=== PATIENT | male | born 1950 | race Caucasian/White ===

== ENCOUNTER 2016-12-09 21:35 | Emergency (ER) | payer OTHER ==
[~2016-12-09] VITALS: Ht 165.1 cm; Wt 88.5 kg
[~2016-12-09 21:35] MED LIST: ACTOS15 MG PO; ADULT LOW DOSE81 MG PO; ALLOPURINOL100 MG PO; AMLODIPINE BESY10 MG PO; ATENOLOL50 MG PO; ATORVASTATIN CA40 MG PO; FUROSEMIDE40 MG PO; GLUCOSAMINE1000 MG PO; HUMULIN N300 UNIT/3 SC; LASIX40 MG PO; LEVOFLOXACIN500 MG PO; LIPITOR40 MG PO; LIPITOR5 MG PO; LOSARTAN POTAS100 MG PO; Lasix PO; Lipitor PO; NORVASC5 MG PO; NOVOLIN N100 UNIT/1 SC; NOVOLOG PE100 UNITS/ SC; NPH HumuLIN SC; Norvasc PO; OXYCODONE HCL5 M1 PO; PANTOPRAZOLE SO40 MG PO; PLAVIX75 MG PO; PRINIVIL40 MG PO; PROTONIX40 MG PO; Protonix PO; ROCALTROL0.25 MCG PO; Rocaltrol PO; SERTRALINE HCL50 MG PO; TENORMIN50 MG PO; Tenormin PO; VITAMIN D-32000 UNIT PO; VITAMIN D31000 UNIT PO; Vitamin D PO; ZOLOFT50 MG PO; ZYLOPRIM100 MG PO; Zestril,Prinivil PO; Zoloft PO; Zyloprim PO
[2016-12-10 00:35] VITALS: BP 156/85
== END 2016-12-10 00:49 | disposition home or self-care (01) ==
LOC: EME 21:35 → RME 21:35
PROC: 2W3CX1Z Immobilization of Right Lower Arm using Splint (ICD-10-PCS; principal; 2016-12-09)
DX: S62.614A Displaced fracture of proximal phalanx of right ring finger, initial encounter for closed fracture (principal); S62.616A Displaced fracture of proximal phalanx of right little finger, initial encounter for closed fracture; W18.30XA Fall on same level, unspecified, initial encounter; I10 Essential (primary) hypertension; E11.9 Type 2 diabetes mellitus without complications; Z79.4 Long term (current) use of insulin; Z79.02 Long term (current) use of antithrombotics/antiplatelets; Z95.1 Presence of aortocoronary bypass graft
CPT/HCPCS: 73130; 99281; 99283

== ENCOUNTER 2017-11-30 02:40 | Inpatient (IN) | payer OTHER ==
[2017-11-30] VITALS (19 sets, daily range): BP systolic 85–107; BP diastolic 40–52
[~2017-11-30] VITALS: Ht 154.9 cm; Wt 101.8 kg
[~2017-11-30 02:40] MED LIST changes: +HUMULIN N100 UNIT/2 SC
[2017-11-30 03:25] LABS: CHLORIDE 113 mEq/L (99-109); POTASSIUM 5.8 mEq/L (3.7-5.4); SODIUM 146 mEq/L (136-147)
[2017-11-30 03:28] LABS: INTER. NORMALIZED RATIO 1.3
[2017-11-30 03:29] LABS: TOTAL BILIRUBIN 0.6 mg/dL (0.0-1.0)
[2017-11-30 03:31] LABS: PTT 43.6 SEC (25-37)
[2017-11-30 03:33] LABS: AST (GOT) 43 IU/L (2-34)
[2017-11-30 03:39] LABS: TROP-I INTERPRETATION NEGATIVE; TROPONIN-I 0.02 ng/mL (0.0-0.30)
[2017-11-30 03:46] LABS: ALBUMIN 3.8 g/dL (3.2-4.8)
[2017-11-30 03:49] LABS: GLUCOSE 110 mg/dL (70-99); TOTAL PROTEIN 6.5 g/dL (6.4-8.3)
[2017-11-30 03:52] LABS: ALKALINE PHOSPHATASE 215 IU/L (3-129)
[2017-11-30 03:53] LABS: CREATININE 5.6 mg/dL (0.6-1.3); GFR ESTIMATE (CALCULATED) 11 mL/min/ (58.99-99999)
[2017-11-30 03:54] LABS: DIRECT BILIRUBIN 0.3 mg/dL (0.0-0.3); UREA NITROGEN (BUN) 98 mg/dL (9-23)
[2017-11-30 03:56] LABS: ALT (GPT) 45 IU/L (3-49)
[2017-11-30 04:33] LABS: BASOPHIL (%) 0.2 % (0-1); EOSINOPHIL COUNT 0.1 K/uL (0-0.3); HEMATOCRIT 31.5 % (38.0-50.0); HEMOGLOBIN 10.3 G/DL (12.5-16.6); IMMATURE GRANULOCYTE (%) 0.2 % (0.0-0.7); LYMPHOCYTE (%) 22.1 % (15-42); MCH 28.9 PG (29.0-34.0); MCHC 32.7 G/DL (30.0-36.0); MCV 88.5 FL (86-99); MONOCYTE (%) 6.4 % (3-12); MONOCYTE COUNT 0.3 K/uL (0-0.8); NEUTROPHIL (%) 69.1 % (45-76); NEUTROPHIL COUNT 3.2 K/uL (1.8-6.4); PLATELET COUNT 78 K/uL (156-360); RBC DIS.WIDTH-CV 17.5 % (11.8-14.6); RBC DIS.WIDTH-SD 56.7 % (39-53); RED BLOOD COUNT 3.56 M/uL (4.00-5.50); WHITE BLOOD COUNT 4.6 K/uL (4.1-10.2)
[2017-11-30 06:56] LABS: APPEARANCE CLOUDY ((CLEAR)); BILIRUBIN NEGATIVE; BLOOD NEGATIVE; COLOR YELLOW ((YELLOW)); GLUCOSE (STRIP) NEGATIVE; KETONES NEGATIVE; LEUKOCYTES MODERATE; NITRITE NEGATIVE; PROTEIN (STRIP) 30; SPECIFIC GRAVITY 1.014 (1.000-1.030); UROBILINOGEN 0.2 MG/DL (0.2-1.0)
[2017-11-30 08:01] LABS: BACTERIA 2+ /HPF; EPITHELIAL CELLS 1+ /HPF; MUCUS NONE SEEN /LPF; RED BLOOD CELLS 0-5 /HPF (0-5); UCUL ADDED? YES
[2017-11-30 08:02] LABS: AMORPHOUS PHOSPHATE CRYSTALS 2+
[2017-11-30 08:25] LABS: THYROTROPIN (TSH) 9.5 MIU/L (0.4-5.5)
[2017-11-30 11:25] LABS: HEPATITIS B SURFACE ANTIGEN Nonreactive
[2017-11-30 11:26] LABS: HEPATITIS B SURFACE ANTIBODY Nonreactive
[2017-12-01] VITALS (20 sets, daily range): BP systolic 92–115; BP diastolic 46–72
[2017-12-01 05:53] LABS: BASOPHIL (%) 0.1 % (0-1); EOSINOPHIL (%) 0.1 % (0-5); HEMATOCRIT 29.4 % (38.0-50.0); HEMOGLOBIN 9.6 G/DL (12.5-16.6); IMMATURE GRANULOCYTE (%) 0.1 % (0.0-0.7); LYMPHOCYTE (%) 10.8 % (15-42); LYMPHOCYTE COUNT 0.8 K/uL (1.0-2.8); MCH 29.1 PG (29.0-34.0); MCHC 32.7 G/DL (30.0-36.0); MCV 89.1 FL (86-99); MONOCYTE (%) 8.1 % (3-12); MONOCYTE COUNT 0.6 K/uL (0-0.8); NEUTROPHIL (%) 80.8 % (45-76); NEUTROPHIL COUNT 6.1 K/uL (1.8-6.4); NRBC (%) 0.3 /100 WBC (0-0); RBC DIS.WIDTH-CV 17.7 % (11.8-14.6); RBC DIS.WIDTH-SD 57.1 % (39-53); WHITE BLOOD COUNT 7.5 K/uL (4.1-10.2)
[2017-12-01 06:55] LABS: CHLORIDE 104 MEQ/L (99-109); GFR ESTIMATE (CALCULATED) 14 mL/min/ (58.99-99999); IRON 60 MCG/DL (35-150); PHOSPHORUS 5.5 mg/dL (2.5-4.9); POTASSIUM 5.7 MEQ/L (3.7-5.4); SODIUM 141 MEQ/L (136-147); TRANSFERRIN SATUR. 31 % (20-55); UREA NITROGEN (BUN) 71 mg/dL (9-23)
[2017-12-01 07:00] LABS: CREATININE 4.6 MG/DL (0.6-1.3); GLUCOSE 202 mg/dL (70-99)
[2017-12-01 08:31] LABS: INTACT PARATHYROID HORMONE 217 pg/mL (10-69)
[2017-12-01 08:38] LABS: PLAT.SUFFICIENCY DECREASED; PLATELET COUNT 80 K/uL (156-360)
[2017-12-01 09:12] LABS: ALBUMIN 3.7 G/DL (3.2-4.8)
[2017-12-02] VITALS (14 sets, daily range): BP systolic 90–129; BP diastolic 47–82
[2017-12-02 06:05] LABS: CHLORIDE 103 MEQ/L (99-109); CREATININE 4.3 MG/DL (0.6-1.3); GFR ESTIMATE (CALCULATED) 15 mL/min/ (58.99-99999); GLUCOSE 171 mg/dL (70-99); PHOSPHORUS 4.8 mg/dL (2.5-4.9); POTASSIUM 4.9 MEQ/L (3.7-5.4); SODIUM 140 MEQ/L (136-147); UREA NITROGEN (BUN) 63 mg/dL (9-23)
[2017-12-03 03:51] VITALS: BP 121/66
[2017-12-03 06:14] LABS: ALBUMIN 3.2 G/DL (3.2-4.8); CHLORIDE 103 MEQ/L (99-109); GFR ESTIMATE (CALCULATED) 12 mL/min/ (58.99-99999); GLUCOSE 176 mg/dL (70-99); PHOSPHORUS 4.7 mg/dL (2.5-4.9); POTASSIUM 4.8 MEQ/L (3.7-5.4); SODIUM 141 MEQ/L (136-147); UREA NITROGEN (BUN) 74 mg/dL (9-23)
[2017-12-03 06:15] LABS: CREATININE 5.1 MG/DL (0.6-1.3)
[2017-12-03 06:37] LABS: HEMATOCRIT 27.9 % (38.0-50.0); HEMOGLOBIN 9.1 G/DL (12.5-16.6); MCH 28.8 PG (29.0-34.0); MCHC 32.6 G/DL (30.0-36.0); MCV 88.3 FL (86-99); PLATELET COUNT 66 K/uL (156-360); RBC DIS.WIDTH-CV 17.5 % (11.8-14.6); RBC DIS.WIDTH-SD 55.8 % (39-53); RED BLOOD COUNT 3.16 M/uL (4.00-5.50); WHITE BLOOD COUNT 5.2 K/uL (4.1-10.2)
[2017-12-03 11:19] VITALS: BP 137/72
[2017-12-03] MEDS ORDERED: FUROSEMIDE80 MG PO (13:41)
[2017-12-03 16:39] VITALS: BP 120/65
[2017-12-03 19:32] VITALS: BP 139/68
[2017-12-03 21:49] LABS: Heparin Induced Plt Ab Negative (Negative)
[2017-12-04] VITALS: BP 140/66
[2017-12-04 04:00] VITALS: BP 145/75
[2017-12-04 06:20] LABS: HEMATOCRIT 28.4 % (38.0-50.0); HEMOGLOBIN 9.6 G/DL (12.5-16.6); MCH 29.2 PG (29.0-34.0); MCHC 33.8 G/DL (30.0-36.0); MCV 86.3 FL (86-99); RBC DIS.WIDTH-CV 17.2 % (11.8-14.6); RBC DIS.WIDTH-SD 54.4 % (39-53); RED BLOOD COUNT 3.29 M/uL (4.00-5.50); WHITE BLOOD COUNT 5.8 K/uL (4.1-10.2)
[2017-12-04 06:37] LABS: ALBUMIN 3.1 G/DL (3.2-4.8); CHLORIDE 101 MEQ/L (99-109); GFR ESTIMATE (CALCULATED) 16 mL/min/ (58.99-99999); GLUCOSE 168 mg/dL (70-99); PHOSPHORUS 3.7 mg/dL (2.5-4.9); POTASSIUM 4.4 MEQ/L (3.7-5.4); SODIUM 140 MEQ/L (136-147); UREA NITROGEN (BUN) 48 mg/dL (9-23)
[2017-12-04 06:49] LABS: CREATININE 3.9 MG/DL (0.6-1.3)
[2017-12-04 07:26] LABS: PLATELET COUNT 65 K/uL (156-360)
[2017-12-04 07:51] VITALS: BP 139/67
[2017-12-04 15:52] LABS: UFH SRA Result Negative (Negative)
[2017-12-04 19:49] VITALS: BP 137/71
[2017-12-04 23:56] VITALS: BP 149/86
[2017-12-05 03:40] VITALS: BP 137/88
[2017-12-05 06:18] LABS: ALBUMIN 3.1 G/DL (3.2-4.8); CHLORIDE 103 MEQ/L (99-109); GFR ESTIMATE (CALCULATED) 21 mL/min/ (58.99-99999); GLUCOSE 169 mg/dL (70-99); PHOSPHORUS 3.3 mg/dL (2.5-4.9); POTASSIUM 4.3 MEQ/L (3.7-5.4); SODIUM 140 MEQ/L (136-147); UREA NITROGEN (BUN) 38 mg/dL (9-23)
[2017-12-05 06:21] LABS: CREATININE 3.1 MG/DL (0.6-1.3)
[2017-12-05 07:29] VITALS: BP 149/69
[2017-12-05 13:59] VITALS: BP 132/76
[2017-12-05 20:13] VITALS: BP 128/70
[2017-12-06] VITALS: BP 143/65
[2017-12-06 04:57] VITALS: BP 137/83
[2017-12-06 06:24] LABS: CHLORIDE 104 MEQ/L (99-109); CREATININE 3.4 MG/DL (0.6-1.3); GFR ESTIMATE (CALCULATED) 19 mL/min/ (58.99-99999); GLUCOSE 178 mg/dL (70-99); POTASSIUM 4.2 MEQ/L (3.7-5.4); SODIUM 141 MEQ/L (136-147); UREA NITROGEN (BUN) 46 mg/dL (9-23)
[2017-12-06 07:48] VITALS: BP 155/70
[2017-12-06 08:34] LABS: BASOPHIL (%) 0.2 % (0-1); EOSINOPHIL (%) 1.5 % (0-5); EOSINOPHIL COUNT 0.1 K/uL (0-0.3); HEMATOCRIT 29.4 % (38.0-50.0); HEMOGLOBIN 9.7 G/DL (12.5-16.6); IMMATURE GRANULOCYTE (%) 0.3 % (0.0-0.7); LYMPHOCYTE (%) 14.7 % (15-42); LYMPHOCYTE COUNT 0.9 K/uL (1.0-2.8); MONOCYTE (%) 6.2 % (3-12); MONOCYTE COUNT 0.4 K/uL (0-0.8); NEUTROPHIL (%) 77.1 % (45-76); NEUTROPHIL COUNT 4.6 K/uL (1.8-6.4); PLATELET COUNT 71 K/uL (156-360); RBC DIS.WIDTH-SD 54.9 % (39-53); RED BLOOD COUNT 3.34 M/uL (4.00-5.50)
[2017-12-06 12:01] VITALS: BP 148/67
[2017-12-06 15:47] VITALS: BP 155/79
[2017-12-06 19:48] VITALS: BP 146/71
[2017-12-07 00:56] VITALS: BP 163/72
[2017-12-07 04:22] VITALS: BP 131/72
[2017-12-07 06:42] LABS: CHLORIDE 104 MEQ/L (99-109); CREATININE 3.8 MG/DL (0.6-1.3); GFR ESTIMATE (CALCULATED) 17 mL/min/ (58.99-99999); GLUCOSE 146 mg/dL (70-99); PHOSPHORUS 4.2 mg/dL (2.5-4.9); POTASSIUM 4.2 MEQ/L (3.7-5.4); SODIUM 142 MEQ/L (136-147); UREA NITROGEN (BUN) 51 mg/dL (9-23)
[2017-12-07 06:43] LABS: HEMATOCRIT 30.4 % (38.0-50.0); MCH 28.6 PG (29.0-34.0); MCHC 32.9 G/DL (30.0-36.0); MCV 86.9 FL (86-99); PLATELET COUNT 81 K/uL (156-360); RBC DIS.WIDTH-CV 16.8 % (11.8-14.6); RBC DIS.WIDTH-SD 53.5 % (39-53); WHITE BLOOD COUNT 5.7 K/uL (4.1-10.2)
[2017-12-07 07:19] VITALS: BP 158/67
[2017-12-07 09:21] LABS: URIC ACID 3.7 mg/dL (3.1-9.2)
[2017-12-07 15:18] VITALS: BP 150/66
[2017-12-07 23:53] VITALS: BP 138/69
[2017-12-08 06:16] LABS: ALBUMIN 3.2 G/DL (3.2-4.8); CHLORIDE 103 MEQ/L (99-109); CREATININE 3.7 MG/DL (0.6-1.3); GFR ESTIMATE (CALCULATED) 17 mL/min/ (58.99-99999); GLUCOSE 172 mg/dL (70-99); POTASSIUM 4.2 MEQ/L (3.7-5.4); SODIUM 143 MEQ/L (136-147); UREA NITROGEN (BUN) 60 mg/dL (9-23); URIC ACID 4.5 mg/dL (3.1-9.2)
[2017-12-08 07:43] VITALS: BP 151/75
[2017-12-08 15:58] VITALS: BP 156/75
[2017-12-09 00:55] VITALS: BP 162/78
[2017-12-09 03:57] VITALS: BP 162/78
[2017-12-09 06:29] LABS: HEMATOCRIT 30.1 % (38.0-50.0); HEMOGLOBIN 9.9 G/DL (12.5-16.6); MCH 28.5 PG (29.0-34.0); MCHC 32.9 G/DL (30.0-36.0); MCV 86.7 FL (86-99); RBC DIS.WIDTH-CV 16.5 % (11.8-14.6); RBC DIS.WIDTH-SD 52.3 % (39-53); RED BLOOD COUNT 3.47 M/uL (4.00-5.50); WHITE BLOOD COUNT 5.3 K/uL (4.1-10.2)
[2017-12-09 06:47] LABS: PLATELET COUNT 112 K/uL (156-360)
[2017-12-09 06:54] LABS: ALBUMIN 3.1 G/DL (3.2-4.8); CHLORIDE 104 MEQ/L (99-109); CREATININE 3.7 MG/DL (0.6-1.3); GFR ESTIMATE (CALCULATED) 17 mL/min/ (58.99-99999); GLUCOSE 140 mg/dL (70-99); GLUCOSE 142 mg/dL (70-99); PHOSPHORUS 3.6 mg/dL (2.5-4.9); POTASSIUM 4.1 MEQ/L (3.7-5.4); POTASSIUM 4.2 MEQ/L (3.7-5.4); SODIUM 142 MEQ/L (136-147); SODIUM 143 MEQ/L (136-147); UREA NITROGEN (BUN) 62 mg/dL (9-23)
[2017-12-09 08:12] VITALS: BP 147/68
[2017-12-09 15:30] VITALS: BP 157/79
[2017-12-10] VITALS: BP 169/84
[2017-12-10 05:37] LABS: HEMATOCRIT 29.4 % (38.0-50.0); HEMOGLOBIN 9.6 G/DL (12.5-16.6); MCH 28.2 PG (29.0-34.0); MCHC 32.7 G/DL (30.0-36.0); MCV 86.5 FL (86-99); PLATELET COUNT 114 K/uL (156-360); RBC DIS.WIDTH-CV 16.2 % (11.8-14.6); RBC DIS.WIDTH-SD 51.1 % (39-53); WHITE BLOOD COUNT 4.7 K/uL (4.1-10.2)
[2017-12-10 06:07] LABS: ALBUMIN 2.7 G/DL (3.2-4.8); CHLORIDE 104 MEQ/L (99-109); CREATININE 3.6 MG/DL (0.6-1.3); GFR ESTIMATE (CALCULATED) 18 mL/min/ (58.99-99999); GLUCOSE 201 mg/dL (70-99); PHOSPHORUS 3.2 mg/dL (2.5-4.9); SODIUM 140 MEQ/L (136-147); UREA NITROGEN (BUN) 65 mg/dL (9-23)
[2017-12-10 08:01] VITALS: BP 144/72
[2017-12-10] MEDS ORDERED: ARANESP40 MCG/0.4 SC (08:43)
[2017-12-10 15:34] VITALS: BP 133/75
== END 2017-12-10 19:09 | DRG 682 ==
LOC: EME 02:40 → EDOF 06:37 → 4WEST 06:37 → 5SOUTH 06:37 → ENRESERV 06:38 → 4WEST 07:29 → ENRESERV 12-02 10:04 → 5SOUTH 12-02 10:59
PROVIDERS: Emergency Medicine; Hospitalist; Internal Medicine; Internal Medicine Critical Care Medicine; Internal Medicine Nephrology; Physician Assistant; Physician Assistant Medical
PROC: 02HV33Z Insertion of Infusion Device into Superior Vena Cava, Percutaneous Approach (ICD-10-PCS; principal; 2017-11-30)
PROC: 5A1D70Z Performance of Urinary Filtration, Intermittent, Less than 6 Hours Per Day (ICD-10-PCS; 2017-11-30)
DX: N17.9 Acute kidney failure, unspecified (principal); I12.0 Hypertensive chronic kidney disease with stage 5 chronic kidney disease or end stage renal disease; N18.4 Chronic kidney disease, stage 4 (severe); E11.21 Type 2 diabetes mellitus with diabetic nephropathy; E11.22 Type 2 diabetes mellitus with diabetic chronic kidney disease; G93.49 Other encephalopathy; E87.70 Fluid overload, unspecified; E87.2 Acidosis; E87.5 Hyperkalemia; D69.6 Thrombocytopenia, unspecified; I95.9 Hypotension, unspecified; N25.81 Secondary hyperparathyroidism of renal origin; I27.20 Pulmonary hypertension, unspecified; I34.0 Nonrheumatic mitral (valve) insufficiency; I48.0 Paroxysmal atrial fibrillation; I69.351 Hemiplegia and hemiparesis following cerebral infarction affecting right dominant side; I48.2 Chronic atrial fibrillation; R00.1 Bradycardia, unspecified; E11.319 Type 2 diabetes mellitus with unspecified diabetic retinopathy without macular edema; D63.1 Anemia in chronic kidney disease; E55.9 Vitamin D deficiency, unspecified; I25.10 Atherosclerotic heart disease of native coronary artery without angina pectoris; R05 Cough; R19.7 Diarrhea, unspecified; R35.1 Nocturia; R47.81 Slurred speech; E78.5 Hyperlipidemia, unspecified; R32 Unspecified urinary incontinence; M10.9 Gout, unspecified; F32.9 Major depressive disorder, single episode, unspecified; F41.9 Anxiety disorder, unspecified; Z79.4 Long term (current) use of insulin; Z95.1 Presence of aortocoronary bypass graft
CPT/HCPCS: 70450; 71045; 76770; 80048; 80048 91; 80069; 80076; 81003; 82040; 82306; 82948; 83540; 83605; 83880; 83970; 84100; 84439; 84443; 84466; 84484; 84550; 85025; 85027; 85610; 85730; 86022 90; 86706; 87040; 87077; 87086; 87186; 87340; 87641; 93005; 93306; 94799; 97530 GP; 99281; 99285; A6214; C1788; J0461; J0610; J0881; J1265; J1644; J1720; J1815; J1940; J2543; J3370; J7030; J7050; P9047